=== PATIENT | female | born 1980 | race Two or more races ===

== ENCOUNTER 2024-11-15 11:31 | Emergency (ER) | payer OTHER ==
[~2024-11-15] VITALS: Ht 160 cm; Wt 75.0 kg
[2024-11-15 13:15] LABS: BASOPHILS % (AUTO) 0.7 % (0.0-2.0); EOSINOPHILS % (AUTO) 0.6 % (1.0-6.0); HEMATOCRIT 40.6 % (36-46); HEMOGLOBIN 13.6 g/dL (12.0-16.0); LYMPHOCYTES # (AUTO) 2.4 K/uL (1.0-4.8); LYMPHOCYTES % (AUTO) 26.6 % (22.0-44.0); MEAN CORPUSCULAR HEMOGLOBIN 29.6 pg (26.0-34.0); MEAN CORPUSCULAR HGB CONC 33.4 G/dL (31.0-37.0); MEAN CORPUSCULAR VOLUME 89 fL (80-100); MONOCYTES # (AUTO) 0.5 K/uL (0.1-1.0); MONOCYTES % (AUTO) 5.3 % (2.0-9.0); NEUTROPHILS % (AUTO) 66.8 % (40.0-70.0); PLATELET COUNT (AUTO) 233 K/uL (150-450); RED BLOOD CELL COUNT(AUTO) 4.59 MIL/uL (4.00-5.20); RED CELL DISTRIBUTION WIDTH 14.1 % (11.5-14.5)
[2024-11-15 13:17] LABS: COVID AG,FIA SOURCE NASAL SWAB
[2024-11-15 13:20] LABS: ANION GAP 9 mmol/L (8-16); CALCIUM, TOTAL 9.1 mg/dL (8.8-10.5); CARBON DIOXIDE 27 mmol/L (22-29); CHLORIDE 104 mmol/L (98-107); CREATININE 0.72 mg/dL (0.60-1.30); GLOMERULAR FILTR. RATE CALC > 60 mL/min (>60); GLUCOSE,RANDOM 85 mg/dL (70-110); POTASSIUM 3.4 mmol/L (3.5-5.1); SODIUM SERUM 140 mmol/L (136-145); UREA NITROGEN, BLOOD 7 mg/dL (7-18)
[2024-11-15 13:30] LABS: TROPONIN I-HIGH SENSITIVITY Less Than 4 ng/L (<51)
[2024-11-15 13:31] LABS: B-TYPE NATRIURETIC PEPTIDE 11 pg/mL (0-100)
[2024-11-15 13:48] LABS: RAPID GROUP A STREP NEG (NEGATIVE)
[2024-11-15 13:49] LABS: INFLUENZA TYPE A NEGATIVE FOR TYPE A (NEGATIVE); INFLUENZA TYPE B NEGATIVE FOR TYPE B (NEGATIVE); SARS-COV2 (COVID) ANTIGEN,FIA Negative (Negative)
[2024-11-15] MEDS: IBUPROFEN 600 MG TABLET PO ONE (13:57)
[2024-11-15] MEDS: POTASSIUM CHLORIDE 20 MEQ ER TABLET PO ONE (13:57)
[2024-11-15 15:11] VITALS: BP 138/76; PULSE 92; RESP 18; TEMP 98.4; O2SAT 100
[2024-11-15] MEDS ORDERED: BENZ-227 PO (15:13)
[2024-11-15] MEDS ORDERED: IBUP-1492 PO (15:13)
[2024-11-15] MEDS ORDERED: ALBU18HF12 IH (15:13)
== END 2024-11-15 15:32 | disposition home or self-care (01) ==
LOC: EMS 11:31
DX: R05.3 Chronic cough (principal); R07.89 Other chest pain; Z88.1 Allergy status to other antibiotic agents; Z88.2 Allergy status to sulfonamides; Z20.822 Contact with and (suspected) exposure to COVID-19
CPT/HCPCS: 71045; 80048; 83880; 84484; 85025; 87430; 87804; 93005; 99285; 36415-L1; 36415-TC